=== PATIENT | male | born 1970 | race Caucasian/White ===

== ENCOUNTER 2018-04-19 17:00 | Emergency (ER) | payer OTHER ==
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
[2018-04-19 17:41] VITALS: BP 128/83
== END 2018-04-19 17:41 | disposition home or self-care (01) ==
DX: S00.83XA Contusion of other part of head, initial encounter (principal); Y04.0XXA Assault by unarmed brawl or fight, initial encounter; Y92.241 Library as the place of occurrence of the external cause